=== PATIENT | male | born 1965 | race African-American/Black ===

== ENCOUNTER 2016-09-12 18:24 | Emergency (ER) | payer BC ==
[2016-09-12 19:14] LABS: BASOPHILS 0.5 % (0.0-2.0); EOSINOPHILS 1.2 % (0-7); HEMOGLOBIN 13.6 g/dL (13.5-17.5); IMMATURE GRANULOCYTES 0.7 % (0-5); LYMPHOCYTES 35.7 % (15-50); MCH 34.3 pg (26.0-34.0); MCHC 35.8 g/dL (31.0-37.0); MEAN PLATELET VOLUME 9.7 fL (7.4-10.4); MONOCYTES 10.6 % (2-11); NEUTROPHILS 51.3 % (40-80); PLATELET COUNT 205 10x3/uL (130-400); RBC 3.96 10x6/uL (4.20-6.10); RDW 17.5 % (11.5-14.5); WBC 8.1 10x3/uL (4.8-10.8)
[2016-09-12 19:27] LABS: ALBUMIN 4.1 g/dL (3.4-5.0); ALKALINE PHOSPHATASE 61 U/L (46-116); ALT (SGPT) 37 U/L (10-68); BILIRUBIN - TOTAL 2.78 mg/dL (0.2-1.3); CALC OSMOLALITY 278 mosm/kg (275-300); CALCIUM 8.8 mg/dL (8.5-10.1); CARBON DIOXIDE 28.5 mmol/L (21.0-32.0); CHLORIDE - SERUM 105 mmol/L (98-107); CREATININE - SERUM 1.3 mg/dL (0.6-1.3); GLUCOSE 95 mg/dL (74-106); POTASSIUM - SERUM 3.7 mmol/L (3.5-5.1); PROTEIN - SERUM 7.1 g/dL (6.4-8.2); SODIUM 139 mmol/L (136-145); UREA NITROGEN 14 mg/dL (7-18); eGFR NON AFRICAN AMERICAN 62 mL/min (90-120)
[2016-09-12 19:39] LABS: CKMB 0.1 U/L (0.0-3.6); CREATINE KINASE 109 UL (21-232)
[2016-09-12 19:40] LABS: TROPONIN-I < 0.017 ng/mL (0.000-0.060)
== END 2016-09-12 23:00 | disposition home or self-care (01) ==
LOC: D.ER 18:24
PROVIDERS: Emergency Medicine
DX: K21.9 Gastro-esophageal reflux disease without esophagitis (principal)